=== PATIENT | female | born 1970 ===

== ENCOUNTER 2024-08-21 05:35 | Day surgery (SDC) | payer OTHER ==
[2024-08-21] MEDS ORDERED: NALOXONE HCL 0.4 MG/ML AMPUL IV STA (08:04)
[2024-08-21] MEDS ORDERED: FLUMAZENIL 0.5 MG/5 ML ML IV STA (08:04)
[2024-08-21] MEDS ORDERED: DIPHENHYDRAMINE HCL 50 MG/ML VIAL 1ML IV ONE (08:15)
[2024-08-21] MEDS ORDERED: ONDANSETRON HCL 2 MG/ML VIAL IV ONE (08:15)
[2024-08-21] MEDS ORDERED: fentaNYL CITRATE 50 MCG/ML AMPUL IV PUSH ONE (08:15)
[2024-08-21] MEDS ORDERED: MIDAZOLAM HCL 2 MG/2 ML VIAL IV ONE (08:15)
[2024-08-21 10:03] LABS: PH,URINE 5.5 (5.0-8.0); URINE APPEARANCE Clear; URINE BILIRRUBIN Negative (NEGATIVE); URINE BLOOD Negative; URINE COLOR Yellow; URINE GLUCOSE Negative (NEGATIVE); URINE KETONE Trace (NEGATIVE); URINE LEUKOCYTE Negative; URINE NITRATE Negative; URINE PROTEIN Negative (NEGATIVE); URINE UROBILINOGEN 0.2 E.U./dl
[2024-08-21 10:07] LABS: URINE BACTERIA 26.9 uL (0.0-1933); URINE RBC 22.9 uL (0.0-20.8)
[2024-08-21 10:09] LABS: HEMATOCRIT 37.6 % (36.0-45.00); MEAN CELL VOLUME 81.8 fL (80.00-100.00); MEAN CORPUSCULAR HGB CONC 31.8 g/dl (32.0-36.0); PLATELET COUNT 306 K/uL (150-450); RED CELL DISTRIBUTION WIDTH 14.3 % (11.5-14.5)
[2024-08-21 10:13] LABS: URINE WBC 0.6 uL (0.0-23.2)
[2024-08-21 10:22] LABS: INR 1.14; PARTIAL THROMBOPLASTIN TIME 29.4 SECONDS (22.0-34.0); PROTHROMBIN TIME 12.3 SECONDS (9.0-11.5)
[2024-08-21 10:53] LABS: ALBUMIN 3.7 gm/dL (3.4-5.0); CALCIUM 9.1 mg/dL (8.5-10.1); CREATININE SERUM 0.85 mg/dL (0.55-1.02); GFR 69.96; MAGNESIUM 2.4 mg/dL (1.8-2.4); PHOSPHOROUS 3.4 mg/dL (2.5-4.9); POTASSIUM 4.63 mEq/L (3.5-5.1)
== END 2024-08-21 11:05 | disposition home or self-care (01) ==
LOC: AMB-ENDOS 05:35
PROVIDERS: ATTEND Colon & Rectal Surgery
DX: D37.4 Neoplasm of uncertain behavior of colon (principal); D12.5 Benign neoplasm of sigmoid colon

== ENCOUNTER 2024-08-27 12:15 | Inpatient (IN) | payer OTHER ==
[~2024-08-27] VITALS: Ht 162.6 cm; Wt 103.4 kg
[2024-08-27 15:02] VITALS: BP 103/70
[2024-08-27] MEDS ORDERED: SYNTHROID125 MCG PO (15:04)
[2024-08-27] MEDS ORDERED: SINGULAIR10 MG PO (15:05)
[2024-08-27] MEDS ORDERED: PRAVASTATIN SOD40 MG PO (15:05)
[2024-08-27] MEDS ORDERED: AVAPRO300 MG PO (15:05)
[2024-08-27] MEDS ORDERED: XYZAL5 MG PO (15:06)
[2024-08-27 15:27] LABS: RH POSITIVE
[2024-08-31] MEDS ORDERED: CEFTRIAXONE SODIUM 2,000 MG VIAL IV ONE (09:15)
[2024-08-31] MEDS ORDERED: METRONIDAZOLE/SODIUM CHLORIDE 500 MG/100 ML PIGGYBACK IV ONE (09:15)
[2024-08-31] MEDS ORDERED: BUPIVACAINE HCL 30 ML VIAL IJ ONE (09:30)
[2024-08-31] MEDS ORDERED: LIDOCAINE HCL 1%/EPINEPHRINE 20ML VIAL IJ ONE (09:30)
[2024-08-31] MEDS ORDERED: CHLORHEXIDINE GLUCONATE 120 ML BOTTLE TOP ONE (11:57)
[2024-08-31] MEDS ORDERED: RINGERS SOLUTION,LACTATED 1,000 ML IV SCH (13:45)
[2024-08-31] MEDS ORDERED: MORPHINE SULFATE 4 MG/ML CARTRIDGE IV PRN (13:45)
[2024-08-31] MEDS ORDERED: OxyCODONE HCL 5 MG TABLET (ROXICODONE) PO PRN (13:45)
[2024-08-31] MEDS ORDERED: ONDANSETRON HCL 2 MG/ML VIAL IV PRN (13:45)
[2024-08-31] MEDS ORDERED: ENALAPRILAT DIHYDRATE 1.25 MG/ML VIAL IV PRN (14:00)
[2024-08-31] MEDS ORDERED: MORPHINE SULFATE 4 MG/ML VIAL IV ONE ×2 (15:00→15:30)
[2024-08-31 16:17] LABS: ALBUMIN 3.4 gm/dL (3.4-5.0); CALCIUM 8.6 mg/dL (8.5-10.1); CREATININE SERUM 0.86 mg/dL (0.55-1.02); GFR 69.02; MAGNESIUM 1.8 mg/dL (1.8-2.4); PHOSPHOROUS 3.4 mg/dL (2.5-4.9); POTASSIUM 3.94 mEq/L (3.5-5.1)
[2024-08-31] MEDS ORDERED: POLYETHYLENE GLYCOL 3350 17 GM BLIST.PACK PO SCH (17:00)
[2024-08-31] MEDS ORDERED: GABAPENTIN 300 MG CAPSULE PO SCH (17:00)
[2024-08-31] MEDS ORDERED: SIMETHICONE 125 MG CAPSULE PO SCH (17:00)
[2024-08-31 17:09] LABS: HEMATOCRIT 38.1 % (36.0-45.00); HEMOGLOBIN 12.2 g/dL (12.0-15.00); MEAN CELL VOLUME 81.2 fL (80.00-100.00); MEAN CORPUSCULAR HEMOGLOBIN 26.1 pg (27.00-32.0); MEAN CORPUSCULAR HGB CONC 32.1 g/dl (32.0-36.0); PLATELET COUNT 351 K/uL (150-450); RED BLOOD COUNT 4.69 M/uL (4.00-6.00); RED CELL DISTRIBUTION WIDTH 14.7 % (11.5-14.5)
[2024-08-31] MEDS ORDERED: ACETAMINOPHEN 500 MG GEL..CAP PO SCH (18:00)
[2024-08-31] MEDS ORDERED: FAMOTIDINE/PF 20 MG/2 ML VIAL IV PUSH SCH (21:00)
[2024-09-01 00:30] VITALS: BP 102/66; O2SAT 98
[2024-09-01] MEDS ORDERED: LEVOTHYROXINE SODIUM 125 MCG TABLET PO SCH (06:00)
[2024-09-01 07:05] LABS: HEMATOCRIT 33.1 % (36.0-45.00); HEMOGLOBIN 10.6 g/dL (12.0-15.00); MEAN CELL VOLUME 81.1 fL (80.00-100.00); MEAN CORPUSCULAR HEMOGLOBIN 26.1 pg (27.00-32.0); MEAN CORPUSCULAR HGB CONC 32.1 g/dl (32.0-36.0); PLATELET COUNT 292 K/uL (150-450); RED BLOOD COUNT 4.08 M/uL (4.00-6.00); RED CELL DISTRIBUTION WIDTH 14.4 % (11.5-14.5)
[2024-09-01 07:42] LABS: ALBUMIN 2.9 gm/dL (3.4-5.0); CALCIUM 8.2 mg/dL (8.5-10.1); CREATININE SERUM 0.62 mg/dL (0.55-1.02); GFR 100.69; MAGNESIUM 1.9 mg/dL (1.8-2.4); PHOSPHOROUS 3.6 mg/dL (2.5-4.9); POTASSIUM 3.97 mEq/L (3.5-5.1)
[2024-09-01 08:00] VITALS: BP 107/73; O2SAT 95
[2024-09-01] MEDS ORDERED: MAGNESIUM SULFATE/D5W 100 ML IV NR (08:30)
[2024-09-01] MEDS ORDERED: LACTOBACILLUS ACIDOPHILUS 1 CAP CAP PO SCH (09:00)
[2024-09-01] MEDS ORDERED: IRBESARTAN 300 MG TABLET PO SCH (09:00)
[2024-09-01] MEDS ORDERED: Cyanocobalamin/Mecobalamin 1 TAB.SL SL SCH (09:00)
[2024-09-01] MEDS ORDERED: FAMOtidine 20 MG TABLET PO SCH (09:00)
[2024-09-01] MEDS ORDERED: NAPH,MB-DB/K PH,MBDB 1 PKT PACKET PO SCH (09:00)
[2024-09-01] MEDS ORDERED: MONTELUKAST SODIUM 10 MG TABLET PO SCH (09:00)
[2024-09-01] MEDS ORDERED: IRON FUM,PS/FOLIC ACID/VITC/B3 1 CAP CAPSULE PO SCH (09:00)
[2024-09-01] MEDS ORDERED: PYRIDOXINE HCL 100 MG TABLET PO SCH (09:00)
[2024-09-01] MEDS ORDERED: MAGNESIUM CHLORIDE 70 MG TABLET.DR PO SCH (09:00)
[2024-09-01] MEDS ORDERED: ENOXAPARIN SODIUM 40 MG/0.4 ML SYRINGE SUBCUTANEO SCH (17:00)
[2024-09-02 00:03] VITALS: BP 101/70; O2SAT 96
[2024-09-02 08:00] VITALS: BP 121/76; O2SAT 98
[2024-09-02 09:01] LABS: HEMATOCRIT 34.9 % (36.0-45.00); MEAN CELL VOLUME 80.2 fL (80.00-100.00); MEAN CORPUSCULAR HGB CONC 32.7 g/dl (32.0-36.0); PLATELET COUNT 355 K/uL (150-450); RED BLOOD COUNT 4.36 M/uL (4.00-6.00); RED CELL DISTRIBUTION WIDTH 14.7 % (11.5-14.5)
[2024-09-02 09:05] LABS: HEMOGLOBIN 11.4 g/dL (12.0-15.00); MEAN CORPUSCULAR HEMOGLOBIN 26.1 pg (27.00-32.0)
[2024-09-02 09:29] LABS: ALBUMIN 3.3 gm/dL (3.4-5.0); CALCIUM 8.7 mg/dL (8.5-10.1); CREATININE SERUM 0.83 mg/dL (0.55-1.02); GFR 71.91; MAGNESIUM 2.2 mg/dL (1.8-2.4); PHOSPHOROUS 2.8 mg/dL (2.5-4.9); POTASSIUM 3.88 mEq/L (3.5-5.1)
[2024-09-02] MEDS ORDERED: NAPH,MB-DB/K PH,MBDB 1 PKT PACKET PO SCH (13:00)
[2024-09-02] MEDS ORDERED: POTASSIUM PHOS,M-BASIC-D-BASIC 15 MM in 0.9 % SODIUM CHLORIDE 250 ML IV ONE (14:00)
[2024-09-02 16:00] VITALS: BP 113/80; O2SAT 99
[2024-09-03 00:47] VITALS: BP 123/78; O2SAT 94
[2024-09-03 07:02] LABS: HEMATOCRIT 31.3 % (36.0-45.00); HEMOGLOBIN 10.4 g/dL (12.0-15.00); MEAN CELL VOLUME 79.2 fL (80.00-100.00); MEAN CORPUSCULAR HEMOGLOBIN 26.2 pg (27.00-32.0); MEAN CORPUSCULAR HGB CONC 33.1 g/dl (32.0-36.0); PLATELET COUNT 345 K/uL (150-450); RED BLOOD COUNT 3.95 M/uL (4.00-6.00); RED CELL DISTRIBUTION WIDTH 15.1 % (11.5-14.5)
[2024-09-03 07:52] LABS: ALBUMIN 2.7 gm/dL (3.4-5.0); CALCIUM 8.4 mg/dL (8.5-10.1); CREATININE SERUM 0.6 mg/dL (0.55-1.02); GFR 104.57; MAGNESIUM 2.1 mg/dL (1.8-2.4); POTASSIUM 3.74 mEq/L (3.5-5.1)
[2024-09-03 08:00] VITALS: BP 113/77; O2SAT 96
[2024-09-03] MEDS ORDERED: NAPH,MB-DB/K PH,MBDB 1 PKT PACKET PO SCH (09:00)
[2024-09-03 11:43] LABS: URINE APPEARANCE Clear; URINE BILIRRUBIN Negative (NEGATIVE); URINE BLOOD Small; URINE COLOR Yellow; URINE GLUCOSE Negative (NEGATIVE); URINE KETONE Negative (NEGATIVE); URINE LEUKOCYTE Small; URINE NITRATE Negative; URINE PROTEIN Negative (NEGATIVE); URINE UROBILINOGEN 0.2 E.U./dl
[2024-09-03 11:47] LABS: URINE BACTERIA 119.8 uL (0.0-1933); URINE EPITHELIAL CELLS 7.1 uL (0.0-38.8); URINE WBC 41.7 uL (0.0-23.2)
[2024-09-03 16:00] VITALS: BP 125/85; O2SAT 94
[2024-09-03] MEDS ORDERED: levoFLOXacin 750 MG TABLET PO SCH (17:00)
[2024-09-04 00:21] VITALS: BP 113/75; O2SAT 95
[2024-09-04 06:32] LABS: HEMATOCRIT 30.7 % (36.0-45.00); MEAN CELL VOLUME 80.4 fL (80.00-100.00); MEAN CORPUSCULAR HEMOGLOBIN 26.1 pg (27.00-32.0); MEAN CORPUSCULAR HGB CONC 32.4 g/dl (32.0-36.0); PLATELET COUNT 347 K/uL (150-450); RED BLOOD COUNT 3.82 M/uL (4.00-6.00); RED CELL DISTRIBUTION WIDTH 14.8 % (11.5-14.5)
[2024-09-04 07:15] LABS: ALBUMIN 2.6 gm/dL (3.4-5.0); CALCIUM 8.6 mg/dL (8.5-10.1); CREATININE SERUM 0.62 mg/dL (0.55-1.02); GFR 100.69; MAGNESIUM 2.1 mg/dL (1.8-2.4); PHOSPHOROUS 3.9 mg/dL (2.5-4.9); POTASSIUM 3.96 mEq/L (3.5-5.1)
[2024-09-04 08:00] VITALS: BP 106/69; O2SAT 95
[2024-09-04 16:29] VITALS: BP 113/73; O2SAT 99
[2024-09-04] MEDS ORDERED: POLYETHYLENE GLYCOL 3350 17 GM BLIST.PACK PO PRN (21:00)
[2024-09-05 00:20] VITALS: BP 118/78; O2SAT 98
[2024-09-05 08:00] VITALS: BP 122/74; O2SAT 98
[2024-09-05 08:24] LABS: HEMOGLOBIN 9.8 g/dL (12.0-15.00); MEAN CELL VOLUME 80.1 fL (80.00-100.00); MEAN CORPUSCULAR HEMOGLOBIN 26.1 pg (27.00-32.0); MEAN CORPUSCULAR HGB CONC 32.6 g/dl (32.0-36.0); PLATELET COUNT 389 K/uL (150-450); RED BLOOD COUNT 3.75 M/uL (4.00-6.00); RED CELL DISTRIBUTION WIDTH 15.1 % (11.5-14.5)
[2024-09-05 08:46] LABS: PH,URINE 6.5 (5.0-8.0); URINE APPEARANCE Clear; URINE BILIRRUBIN Negative (NEGATIVE); URINE BLOOD Negative; URINE COLOR Yellow; URINE GLUCOSE Negative (NEGATIVE); URINE KETONE Trace (NEGATIVE); URINE LEUKOCYTE Negative; URINE NITRATE Negative; URINE PROTEIN Negative (NEGATIVE); URINE UROBILINOGEN 0.2 E.U./dl
[2024-09-05 08:48] LABS: URINE BACTERIA 95.4 uL (0.0-1933); URINE RBC 11.9 uL (0.0-20.8); URINE WBC 5.5 uL (0.0-23.2)
[2024-09-05 09:03] LABS: ALBUMIN 2.6 gm/dL (3.4-5.0); BILIRUBIN TOTAL 0.38 mg/dL (0.3-1.2); CALCIUM 8.8 mg/dL (8.5-10.1); CREATININE SERUM 0.61 mg/dL (0.55-1.02); GFR 102.6; GLOBULINA 3.2 G/DL (2.4-3.5); MAGNESIUM 2.1 mg/dL (1.8-2.4); PHOSPHOROUS 4.5 mg/dL (2.5-4.9); POTASSIUM 4.1 mEq/L (3.5-5.1); TOTAL PROTEIN 5.8 gm/dL (6.4-8.2)
[2024-09-05 16:00] VITALS: BP 128/85; O2SAT 99
[2024-09-05] MEDS ORDERED: INTESTINEX680 M1 PO (17:10)
[2024-09-05] MEDS ORDERED: FAMOTIDINE20 MG PO (17:10)
[2024-09-05] MEDS ORDERED: LEVOFLOXACIN750 MG PO (17:10)
[2024-09-05] MEDS ORDERED: INTEGRA F CAPS1 EACH PO (17:10)
== END 2024-09-06 09:48 | disposition home or self-care (01) | DRG 330 ==
LOC: O/R 08-31 05:15 → SURH 08-31 05:15 → O/R 09-02 10:13 → SURH 09-02 10:14
PROVIDERS: Internal Medicine Infectious Disease; ADMIT Colon & Rectal Surgery; ATTEND Colon & Rectal Surgery
PROC: 0DBP4ZZ Excision of Rectum, Percutaneous Endoscopic Approach (ICD-10-PCS; 2024-08-31)
PROC: 0DNN4ZZ Release Sigmoid Colon, Percutaneous Endoscopic Approach (ICD-10-PCS; 2024-08-31)
PROC: 0DTG4ZZ Resection of Left Large Intestine, Percutaneous Endoscopic Approach (ICD-10-PCS; 2024-08-31)
PROC: 0WBF4ZZ Excision of Abdominal Wall, Percutaneous Endoscopic Approach (ICD-10-PCS; 2024-08-31)
PROC: 0DJD8ZZ Inspection of Lower Intestinal Tract, Via Natural or Artificial Opening Endoscopic (ICD-10-PCS; 2024-08-31)
PROC: 0DTN4ZZ Resection of Sigmoid Colon, Percutaneous Endoscopic Approach (ICD-10-PCS; principal; 2024-08-31 09:00)
PROC: BW24ZZZ Computerized Tomography (CT Scan) of Chest and Abdomen (ICD-10-PCS; 2024-09-04)
DX: C18.7 Malignant neoplasm of sigmoid colon (principal); J95.89 Other postprocedural complications and disorders of respiratory system, not elsewhere classified; R59.0 Localized enlarged lymph nodes; I10 Essential (primary) hypertension; E78.5 Hyperlipidemia, unspecified; E03.9 Hypothyroidism, unspecified

== ENCOUNTER 2025-04-23 06:00 | Day surgery (SDC) | payer OTHER ==
[~2025-04-23 06:00] MED LIST: AVAPRO300 MG PO; FAMOTIDINE20 MG PO; INTEGRA F CAPS1 EACH PO; INTESTINEX680 M1 PO; LEVOFLOXACIN750 MG PO; PRAVASTATIN SOD40 MG PO; SINGULAIR10 MG PO; SYNTHROID125 MCG PO; XYZAL5 MG PO
[2025-04-23] MEDS ORDERED: fentaNYL CITRATE 50 MCG/ML AMPUL IV PUSH ONE (09:45)
[2025-04-23] MEDS ORDERED: ONDANSETRON HCL 2 MG/ML VIAL IV ONE (09:45)
[2025-04-23] MEDS ORDERED: MIDAZOLAM HCL 2 MG/2 ML VIAL IV ONE (09:45)
[2025-04-23] MEDS ORDERED: DIPHENHYDRAMINE HCL 50 MG/ML VIAL 1ML IV ONE (09:45)
== END 2025-04-23 10:30 | disposition home or self-care (01) ==
LOC: AMB-ENDOS 06:00
PROVIDERS: ATTEND Colon & Rectal Surgery
DX: K63.5 Polyp of colon (principal)